=== PATIENT | female | born 1995 ===

== ENCOUNTER → 2022-03-29 | Outpatient (REF) | payer OTHER | LOC: M LAB REF 16:19 | PROVIDERS: ATTEND Physician Assistant | DX: M79.10 Myalgia, unspecified site (principal); R68.83 Chills (without fever) ==

== ENCOUNTER 2023-09-02 02:16 | Inpatient (IN) | payer OTHER ==
[~2023-09-02] VITALS: Ht 157.5 cm; Wt 75.3 kg
[2023-09-02] VITALS (32 sets, daily range): BP systolic 98–148; BP diastolic 56–100; O2SAT 100
[2023-09-02 04:04] LABS: HEMATOCRIT 38.4 % (36.0-47.0); HEMOGLOBIN 12.8 g/dl (12.0-15.5); MEAN CORPUSCULAR HEMOGLOBIN 29.7 pg (27.0-33.0); MEAN CORPUSCULAR HGB CONC 33.3 g/dl (32.0-36.5); MEAN CORPUSCULAR VOLUME 89.1 fl (80.0-96.0); PLATELET COUNT, AUTOMATED 218 10^3/uL (150-450); RED BLOOD COUNT 4.31 10^6/uL (4.00-5.40)
[2023-09-02] MEDS ORDERED: HOME MED LIST COMPLETE! XX SCH (04:15)
[2023-09-02 04:34] LABS: URIC ACID 3.8 MG/DL (3.1-7.8)
[2023-09-02 04:36] LABS: LDH LACTATE DEHYDROGENASE 154 U/L (120-246)
[2023-09-02 04:37] LABS: ALT/SGPT 27 U/L (7.0-40); AST/SGOT 20 U/L (<34); BILIRUBIN,TOTAL 0.3 MG/DL (0.3-1.2); CREATININE FOR GFR 0.52 MG/DL (0.55-1.30); GLOMERULAR FILTRATION RATE > 60.0 (>60)
[2023-09-02 04:56] LABS: APPEARANCE, URINE CLEAR (CLEAR); BACTERIA, URINE AUTO 1+ (NEGATIVE); BILIRUBIN, URINE AUTO NEGATIVE (NEGATIVE); BLOOD, URINE BLOOD 3+ (NEGATIVE); COLOR, URINE YELLOW (YELLOW); GLUCOSE, URINE (UA) AUTO NEGATIVE (NEGATIVE); KETONE, URINE AUTO NEGATIVE (NEGATIVE); LEUKOCYTE ESTERASE, URINE AUTO NEGATIVE (NEGATIVE); NITRITE, URINE AUTO NEGATIVE (NEGATIVE); PROTEIN, URINE AUTO 1+ mg/dL (NEGATIVE); RBC, URINE AUTO 79 /HPF (0-3); SPECIFIC GRAVITY URINE AUTO 1.008 (1.002-1.035); SQUAMOUS EPITHELIAL CELL UR AU 1 /HPF (0-6); UROBILINOGEN, URINE AUTO 0.2 mg/dL (0.0-2.0); WBC, URINE AUTO 2 /HPF (0-3)
[2023-09-02 05:09] LABS: TOTAL PROTEIN,RANDOM URINE 42.8 MG/DL (0.0-14.0)
[2023-09-02] MEDS ORDERED: METHYLERGONOVINE MALEATE 0.2MG/ML 1ML VIAL IM PRN (05:20)
[2023-09-02] MEDS ORDERED: LACTATED RINGER'S 1000 ML IV STA (05:20)
[2023-09-02] MEDS ORDERED: LIDOCAINE 1% MDV 20ML VIAL INFIL PRN (05:20)
[2023-09-02] MEDS ORDERED: LR 1,000 ML IV SCH ×3 (05:20→17:25)
[2023-09-02] MEDS ORDERED: CARBOPROST TROMETHAMINE 250 MCG/ML AMP IM PRN (05:20)
[2023-09-02] MEDS ORDERED: TRANEXAMIC ACID INJection 1,000 MG in NS 100 ML IV PRN (05:20)
[2023-09-02] MEDS ORDERED: OXYTOCIN INJ 10UNITS/ML 1ML VIAL IM PRN (05:20)
[2023-09-02] MEDS ORDERED: OXYTOCIN DRIP 30 UNITS in IV 1 EA IV PRN ×6 (05:20)
[2023-09-02] MEDS ORDERED: OXYTOCIN DRIP 30 UNITS in IV 1 EA IV SCH ×5 (09:10→17:25)
[2023-09-02] MEDS ORDERED: LR 500 ML IV PRN (09:55)
[2023-09-02] MEDS ORDERED: NALOXONE INJ 0.4MG/1ML VIAL IV PRN (09:55)
[2023-09-02] MEDS ORDERED: FENTANYL/ROPIVACAINE/NACL BAG 100 ML EPIDURAL SCH (09:55)
[2023-09-02] MEDS ORDERED: EPIDURAL/PCA KEYS XX PRN (09:55)
[2023-09-02] MEDS ORDERED: ePHEDrine SULFATE 25 MG/5 ML(5MG/ML) SYRINGE IVP PRN (09:55)
[2023-09-02] MEDS ORDERED: diphenhydrAMINE 50MG/ML VIAL IV PRN (09:55)
[2023-09-02] MEDS ORDERED: ONDANSETRON 4MG 2ML VIAL IV PRN ×2 (09:55→17:25)
[2023-09-02] MEDS ORDERED: FENTANYL 2MCG/ML ROPIVACAINE 0.2% IN 0.9% NACL 100ML IVBAG As Ordered ONE (09:58)
[2023-09-02] MEDS ORDERED: AMPICILLIN SOD/SULBACTAM SOD 3 GM in D5W MINI-BAG PLUS 100 ML IV ONE (16:45)
[2023-09-02] MEDS ORDERED: MOM 30ML SUSPENSION UDC PO PRN (17:25)
[2023-09-02] MEDS ORDERED: ACETAMINOPHEN TAB 650MG DOSE (2X325MG) PO PRN (17:25)
[2023-09-02] MEDS ORDERED: RHOGAM 300MCG (1500IU) INJ IM SCH (17:25)
[2023-09-02] MEDS ORDERED: METHYLERGONOVINE MALEATE 0.2 MG TAB PO PRN (17:25)
[2023-09-02] MEDS ORDERED: DIBUCAINE 1% OINTMENT 30GM TOP PRN (17:25)
[2023-09-02] MEDS ORDERED: DOCUSATE SODIUM 100MG CAPSULE PO PRN (17:25)
[2023-09-02] MEDS ORDERED: IBUPROFEN 600MG TAB PO PRN (17:25)
[2023-09-02] MEDS ORDERED: ACETAMINOPHEN 500 MG TAB PO PRN (17:25)
[2023-09-02] MEDS: IBUPROFEN 800 MG TAB PO PRN (19:26)
[2023-09-03 06:00] VITALS: BP 110/59; O2SAT 98
[2023-09-03] MEDS: IBUPROFEN 800 MG TAB PO PRN ×2 (06:00→16:57)
[2023-09-03] MEDS: PRENATAL VITAMINS CHEWABLE TABLET PO SCH (07:49)
[2023-09-03 18:00] VITALS: BP 118/79; O2SAT 98
[2023-09-04] MEDS: IBUPROFEN 800 MG TAB PO PRN (05:28)
[2023-09-04 05:29] VITALS: BP 114/68
[2023-09-04] MEDS: PRENATAL VITAMINS CHEWABLE TABLET PO SCH (08:39)
[2023-09-04] MEDS ORDERED: MEASLES,MUMPS,RUBELLA VACCINE INJ (MMR-II) SC.IMMUN ONE (09:00)
== END 2023-09-04 11:45 | disposition home or self-care (01) | DRG 807 ==
LOC: M LDO 02:16 → M LDI 05:21 → M OBS 18:44
PROVIDERS: ADMIT Obstetrics & Gynecology; ATTEND Obstetrics & Gynecology
PROC: 10D17Z9 Manual Extraction of Products of Conception, Retained, Via Natural or Artificial Opening (ICD-10-PCS; principal; 2023-09-02)
PROC: 0KQM0ZZ Repair Perineum Muscle, Open Approach (ICD-10-PCS; 2023-09-02)
PROC: 10E0XZZ Delivery of Products of Conception, External Approach (ICD-10-PCS; 2023-09-02)
PROC: 0HQ9XZZ Repair Perineum Skin, External Approach (ICD-10-PCS; 2023-09-02)
DX: O14.94 Unspecified pre-eclampsia, complicating childbirth (principal); Z37.0 Single live birth; O72.0 Third-stage hemorrhage; O72.1 Other immediate postpartum hemorrhage; Z3A.39 39 weeks gestation of pregnancy; O26.00 Excessive weight gain in pregnancy, unspecified trimester; O70.0 First degree perineal laceration during delivery; O70.1 Second degree perineal laceration during delivery